=== PATIENT | female | born 1945 | race Caucasian/White ===

== ENCOUNTER → 2016-11-09 | Outpatient (CLI) | payer OTHER ==
[~2016-11-09] MED LIST: ADVIL COLD & S1 EAC1; ASPIRIN325 OR; CALCIUM CIT-VI1 EACH OR; CRANBERRY1000 MG OR; CRANBERRY400 MG PO; DESYREL100 MG OR; LEVOTHYROXIN0.137 M1 OR; MIRALAX255 GM OR; MOTION RELIEF25 MG PO; MULTIVITAMINS OR; PRILOSEC 20 MG20 MG OR; PRISTIQ50 MG PO; PROZAC 20 MG20 M1 OR; SIMVASTATIN40 MG OR; TOVIAZ4 MG OR
== END ==
LOC: RAD 01:43
DX: Z12.31 Encounter for screening mammogram for malignant neoplasm of breast (principal)